=== PATIENT | male | born 1935 | race Caucasian/White ===

== ENCOUNTER 2019-12-24 14:05 | Emergency (ER) | payer MEDICARE, OTHER ==
--- NOTE | 2019-12-24 15:02 | EDM.PDOC ---
ED HPI GENERAL MEDICAL PROBLEM - General Chief Complaint: Upper Extremity Injury/Pain Stated Complaint: LUMP ON RT ELBOW Time Seen by Provider: 12/24/19 14:56 Source of Information: Reports: Patient, RN History Limitations: Reports: No Limitations - History of Present Illness INITIAL COMMENTS - FREE TEXT/NARRATIVE: Patient presents to the ED with c/o right elbow swelling that he first noticed approximately 8 weeks ago. He is from [place] and is up here fishing for awhile. He has absolutely no pain with the elbow. full ROM. Swelling is larger than a golf ball but smaller than a baseball. Onset: Gradual Duration: Week(s): (8-10) Location: Reports: Upper Extremity, Right (elbow) - Related Data Allergies Allergy/AdvReac Type Severity Reaction Status Date / Time No Known Allergies Allergy Verified 12/24/19 14:31 Home Meds: Home Meds NK [No Known Home Meds] 12/24/19 [History] Past Medical History Cardiovascular History: Reports: Pacemaker, Other (See Below) Other Cardiovascular History: Defibrillator - Past Surgical History Cardiovascular Surgical History: Reports: Coronary Artery Bypass Social & Family History - Tobacco Use Smoking Status *Q: Never Smoker - Caffeine Use Caffeine Use: Reports: Coffee - Alcohol Use Days Per Week of Alcohol Use: 2 Number of Drinks Per Day: 2 Total Drinks Per Week: 4 Date of Last Drink: 12/23/19 Time of Last Drink: 21:00 - Recreational Drug Use Recreational Drug Use: No Review of Systems - Review of Systems Review Of Systems: See Below Constitutional: Reports: No Symptoms Eyes: Reports: No Symptoms Ears: Reports: No Symptoms Nose: Reports: No Symptoms Mouth/Throat: Reports: No Symptoms Respiratory: Reports: No Symptoms Cardiovascular: Reports: No Symptoms GI/Abdominal: Reports: No Symptoms Genitourinary: Reports: No Symptoms Musculoskeletal: Reports: Joint Swelling (bursa swollen- not joint itself). Denies: Arm Pain Skin: Reports: No Symptoms Neurological: Reports: No Symptoms Psychiatric: Reports: No Symptoms ED EXAM, GENERAL - Physical Exam Exam: See Below Exam Limited By: No Limitations General Appearance: Alert, WD/WN, No Apparent Distress Respiratory/Chest: No Respiratory Distress Cardiovascular: Normal Peripheral Pulses Peripheral Pulses: 2+: Radial (L), Radial (R) Extremities: Normal Range of Motion (full ROM of right elbow- extension, flexion, supination, and pronation WNL), Normal Capillary Refill, Other (no increased warmth, erythema, or sx of infection to right elbow. ) Neurological: Alert, Oriented Psychiatric: Normal Affect Skin Exam: Warm, Dry, Intact, Normal Color, No Rash Course - Vital Signs Last Recorded V/S: Last Vital Signs Temp 97.3 F 12/24/19 14:41 Pulse 80 12/24/19 14:41 Resp 16 12/24/19 14:41 BP 148/84 H 12/24/19 14:41 Pulse Ox 95 12/24/19 14:41 Departure - Departure Time of Disposition: 14:56 Disposition: Home, Self-Care 01 Condition: Good Clinical Impression: Olecranon bursitis of right elbow - Discharge Information *PRESCRIPTION DRUG MONITORING PROGRAM REVIEWED*: No *COPY OF PRESCRIPTION DRUG MONITORING REPORT IN PATIENT MERCEDEZ: No Instructions: Elbow Bursitis, [id number] Referrals: PCP,None [Primary Care Provider] - Additional Instructions: You have an elbow bursitis. This is a benign condition as long as it is not bothering you. If you want, you can use an macho wrap or elbow sleeve around your elbow to apply some pressure to the swelling. The swelling should reduce on it's own- this is a slow process. If it becomes bothersome- follow up with your PCP when you are back in [place]. Return to ED if you develop pain while you are still in [place]. Sepsis Event Note (ED) - Evaluation Sepsis Screening Result: No Definite Risk - Focused Exam Vital Signs: Vital Signs Temp Pulse Resp BP Pulse Ox 12/24/19 14:41 97.3 F 80 16 148/84 H 95 12/24/19 14:26 97.4 F 80 16 148/84 H 95 - Assessment/Plan Plan: discharge to home. patient could use an elbow sleeve or macho wrap if desired on right elbow.
== END 2019-12-24 15:10 | disposition home or self-care (01) ==
LOC: JP.ED 14:05
DX: M70.21 Olecranon bursitis, right elbow (principal); Z95.1 Presence of aortocoronary bypass graft
CPT/HCPCS: 99283